=== PATIENT | male | born 1995 | race African-American/Black ===

== ENCOUNTER 2022-09-04 21:28 | Inpatient (IN) | payer MEDICAID, OTHER ==
[~2022-09-04] VITALS: Ht 2.5 cm; Wt 0.0 kg
[2022-09-04] MEDS ORDERED: ONDANSETRON ODT 4 MG TAB PO ONE (22:30)
[2022-09-04] MEDS ORDERED: chlordiazePOXIDE HCL 5 MG CAP PO ONE (22:30)
[2022-09-04] MEDS ORDERED: THIAMINE 100mg/ml INJ (200mg/2ml VIAL) IV ONE (22:30)
[2022-09-04 22:59] LABS: Basophils # (auto) 0.1 10 ^3/uL (0-0.2); Basophils % (auto) 1.3 % (0.0-2.0); Eosinophils # (auto) 0 10 ^3/uL (0-0.8); Eosinophils % (auto) 0.3 % (0.0-7.0); Hematocrit 50.1 % (41.0-53.0); Hemoglobin 17.4 g/dL (13.5-17.5); Lymphocytes # (auto) 1.8 10 ^3/uL (0.4-5.4); Lymphocytes % (auto) 18.8 % (10.0-50.0); Mean Corpuscular Hemoglobin 31.8 pg (28.0-32.0); Mean Corpuscular Hgb Conc. 34.7 g/dL (32.0-36.0); Mean Corpuscular Volume 91.7 fL (80.0-100.0); Monocytes % (auto) 10.4 % (0.0-12.0); Neutrophils # (auto) 6.7 10 ^3/uL (1.6-8.6); Neutrophils % (auto) 69.2 % (37.0-80.0); Nucleated Red Blood Cells % 0.2 %; Red Blood Cells 5.46 10^6/uL (4.5-5.90); Red Cell Distribution Width 13.8 % (11.8-14.3); White Blood Cell 9.7 10^3/uL (4.4-10.8)
[2022-09-04 23:15] LABS: Amphetamine Screen, Urine NEGATIVE (NEGATIVE); Barbiturate Scree,Urine NEGATIVE (NEGATIVE); Benzodiazephine Screen, Urine NEGATIVE (NEGATIVE); Cannabinoid Screen, Urine POSITIVE (NEGATIVE); Cocaine Screen, Urine NEGATIVE (NEGATIVE); Opiate Scree,Urine NEGATIVE (NEGATIVE); Phencyclidine Screen, Urine NEGATIVE (NEGATIVE)
[2022-09-04 23:18] LABS: Albumin 4.3 g/dL (3.4-5.0); BUN/Creatinine Ratio 8.9 (10.0-20.0); Calcium 10.1 mg/dL (8.5-10.1); Potassium 3.8 mmol/L (3.5-5.1)
[2022-09-04 23:20] LABS: Bilirubin, Total 0.9 mg/dL (0.2-1.0)
[2022-09-05] MEDS ORDERED: HYDROcodone-ACET 5/325MG TAB PO PRN (04:15)
[2022-09-05] MEDS ORDERED: LORazepam 2MG/ML-1ML VIAL IV PRN (04:15)
[2022-09-05] MEDS ORDERED: MORPHINE SULFATE INJ 2 MG/ml SYRG IV PRN ×2 (04:15)
[2022-09-05] MEDS ORDERED: ACETAMINOPHEN 325 MG TAB PO PRN (04:15)
[2022-09-05] MEDS ORDERED: NITROGLYCERIN 0.4 MG SL TAB SL PRN (04:15)
[2022-09-05] MEDS ORDERED: DOCUSATE SOD 100 MG CAP PO PRN (04:15)
[2022-09-05] MEDS ORDERED: ONDANSETRON HCL 4 MG/2 ML VIAL IV PRN (04:15)
[2022-09-05] MEDS: SODIUM CHLORIDE 0.9% 1,000 ML IV SCH ×2 (04:32→07:37)
[2022-09-05] MEDS ORDERED: FOLIC ACID 1 MG, MULTIPLE VITAMIN 10 ML, MAGNESIUM SULF SDV 50% 8 MEQ, THIAMINE INJ 100... INJ SCH ×5 (12:00)
[2022-09-05 12:18] LABS: Basophils # (auto) 0.1 10 ^3/uL (0-0.2); Basophils % (auto) 1.2 % (0.0-2.0); Eosinophils # (auto) 0.1 10 ^3/uL (0-0.8); Eosinophils % (auto) 1.8 % (0.0-7.0); Hematocrit 45.9 % (41.0-53.0); Hemoglobin 16.1 g/dL (13.5-17.5); Lymphocytes # (auto) 1.4 10 ^3/uL (0.4-5.4); Lymphocytes % (auto) 19.2 % (10.0-50.0); Mean Corpuscular Hgb Conc. 35.2 g/dL (32.0-36.0); Monocytes # (auto) 0.7 10 ^3/uL (0-1.3); Monocytes % (auto) 10.3 % (0.0-12.0); Neutrophils # (auto) 4.7 10 ^3/uL (1.6-8.6); Neutrophils % (auto) 67.5 % (37.0-80.0); Nucleated Red Blood Cells % 0.1 %; Red Blood Cells 5.04 10^6/uL (4.5-5.90); Red Cell Distribution Width 13.7 % (11.8-14.3)
[2022-09-05 12:42] LABS: Albumin 3.9 g/dL (3.4-5.0); Calcium 9.5 mg/dL (8.5-10.1); Potassium 3.4 mmol/L (3.5-5.1)
[2022-09-05 12:44] LABS: BUN/Creatinine Ratio 10.8 (10.0-20.0); Bilirubin, Total 1.6 mg/dL (0.2-1.0); Total Protein 7.4 g/dL (6.4-8.2)
[2022-09-05] MEDS ORDERED: DONNATAL 5ml ORAL Elix (BELLADONNA ALK-PHENOBARB) PO ONE (17:30)
[2022-09-05] MEDS ORDERED: LIDOCAINE VISCOUS 2% 15ML UD PO ONE (17:30)
[2022-09-05] MEDS ORDERED: MAALOX PLUS or MAALOX 30 ML PO ONE (17:30)
[2022-09-05 19:19] VITALS: BP 140/86
== END 2022-09-05 19:22 | disposition home or self-care (01) | DRG 775 ==
LOC: ER 21:28 → TELE 09-05 04:11
PROVIDERS: ADMIT Nurse Practitioner Family; ATTEND Nurse Practitioner Family
DX: F10.129 Alcohol abuse with intoxication, unspecified (principal); F32.A Depression, unspecified; T51.0X1A Toxic effect of ethanol, accidental (unintentional), initial encounter; F41.9 Anxiety disorder, unspecified; Y92.89 Other specified places as the place of occurrence of the external cause
CPT/HCPCS: 36415; 80053; 80307; 80320; 83880; 84484; 85025; 93005; 96361; 96365; 96366; 96375; G0378; Q0162

== ENCOUNTER 2024-11-29 11:40 | Inpatient (IN) | payer MEDICAID ==
[~2024-11-29] VITALS: Ht 188 cm; Wt 87.5 kg
--- NOTE | 2024-11-29 12:34 | ED.PDOC ---
History of Present Illness HPI Comments Patient is a 29-year-old male presents to the ED with a chief complaint of left calf pain. Reports pain started yesterday morning has been constant, [id number] in intensity about 8/10, has calf tenderness and reports pain on walking. Patient reports he had a similar pain in January 2023 when he was diagnosed with a DVT in the left lower extremity and was blood thinners for a couple of months but does not remember the name. Does not report any recent history of surgery, immobilization. Denies any history of blood clots in the family Chief Complaint: Lower Extremity Time Seen by MD: 12:11 Primary Care Provider: VERONIKA Reviewed Notes: Nurses Notes, Medications, Allergies Allergies: Coded Allergies: NO KNOWN ALLERGIES (Unverified , 08/17/14) Information Source: Patient Mode of Arrival: Ambulatory Severity: Mild, Moderate Timing: Days Past Medical History PAST MEDICAL HISTORY: Anxiety, Depression Past Medical History (Other): DVT Surgical History: Denies all surgeries Family History Family History: Reviewed,noncontributory to illness, No family hx of Cancer, No family hx of DM, No family hx of Heart ruma, No family hx of HTN, No family hx ofKidney ruma, No family hx of Liver ruma, No family hx of Lung ruma, No family hx of Stroke Social History Smoker: Non-Smoker Alcohol: Denies ETOH Use Drugs: Denies Drug Use Constitutional: denies: chills, diaphoresis, fatigue, fever, malaise, sweats, weakness, others EENTM: denies: blurred vision, double vision, ear bleeding, ear discharge, ear drainage, ear pain, ear ringing, eye pain, eye redness, hearing loss, mouth pain, mouth swelling, nasal discharge, nose bleeding, nose congestion, nose pain, photophobia, tearing, throat pain, throat swelling, voice changes, others Respiratory: denies: cough, hemoptysis, orthopnea, SOB at rest, shortness of breath, SOB with excertion, stridor, wheezing, others Cardiovascular: denies: chest pain, dizzy spells, diaphoresis, Dyspnea on exertion, edema, irregular heart beat, left arm pain, lightheadedness, palpitations, PND, syncope, others Gastrointestinal: denies: abdomen distended, abdominal pain, blood streaked bowels, constipated, diarrhea, dysphagia, difficulty swallowing, hematemesis, melena, nausea, poor appetite, poor fluid intake, rectal bleeding, rectal pain, vomiting, others Genitourinary: denies: burning, dysuria, flank pain, frequency, hematuria, incontinence, penile discharge, penile sore, pain, testicle pain, testicle swelling, urgency, others Neurological: denies: dizziness, fainting, headache, left sided numbness, left sided weakness, numbness, paresthesia, pre-existing deficit, right sided numbness, right sided weakness, seizure, speech problems, tingling, tremors, weakness, others Musculoskeletal: reports: others (Left calf pain and tenderness) Integumetry: denies: bruises, change in color, change in hair/nails, dryness, laceration, lesions, lumps, rash, wounds, others Allergic/Immunocompromised: denies: Difficulty Healing, Frequent Infections, Hives, Itching, others Hematologic/Lymphatic: denies: anemia, blood clots, easy bleeding, easy bruising, swollen glands, others Endocrine: denies: excessive hunger, excessive sweating, excessive thirst, excessive urination, flushing, intolerance to cold, intolerance to heat, unexplained weight gain, unexplained weight loss, others Psychiatric: denies: anxiety, bipolar disorder, depression, hopeless, panic disorder, schizophrenia, sleepless, suicidal, others Physical Exam General Appearance: No Apparent Distress, Normal HEENT: Normal ENT Inspection, Pharynx Normal, TMs Normal Neck: Full Range of Motion, Non-Tender, Normal, Normal Inspection Respiratory: Chest Non-Tender, Lungs Clear, No Accessory Muscle Use, No Respiratory Distress, Normal Breath Sounds Cardiovascular: No Edema, No JVD, No Murmur, No Gallop, Normal Peripheral Puls es, Regular Rate/Rhythm Breast Exam: Deferred Gastrointestinal: No Organomegaly, Non Tender, No Pulsatile Mass, Normal Bowel Sounds, Soft Genitalia: Deferred Pelvic: Deferred Rectal: Deferred Extremities: Calf tenderness (Left), Normal inspection, Normal range of motion, No pedal edema Neurologic: Alert, 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 Was a procedure done?: No Differential Dx Considerations may include: DVT, cough strain, muscle tear, superficial thrombophlebitis X-Ray, Labs, Meds, VS Vital Signs Date Time Temp Pulse Resp B/P (MAP) Pulse Ox O2 Delivery O2 Flow Rate FiO2 11/29/24 12:23 98.3 89 20 144/90 (108) 97 98.3 Lab Test 11/29/24 12:34 Range/Units White Blood Count 5.3 4.4-10.8 10^3/uL Red Blood Count 4.55 4.5-5.90 10^6/uL Hemoglobin 14.5 13.5-17.5 g/dL Hematocrit 43.0 41.0-53.0 % Mean Corpuscular Volume 94.5 80.0-100.0 fL Mean Corpuscular Hemoglobin 31.9 28.0-32.0 pg Mean Corpuscular Hemoglobin Concent 33.8 32.0-36.0 g/dL Red Cell Distribution Width 13.7 11.8-14.3 % Platelet Count 239 140-450 10^3/uL Mean Platelet Volume 7.6 6.9-10.8 fL Neutrophils (%) (Auto) 58.5 37.0-80.0 % Lymphocytes (%) (Auto) 21.6 10.0-50.0 % Monocytes (%) (Auto) 15.9 H 0.0-12.0 % Eosinophils (%) (Auto) 3.4 0.0-7.0 % Basophils (%) (Auto) 0.6 0.0-2.0 % Neutrophils # (Auto) 3.1 1.6-8.6 10 ^3/uL Lymphocytes # (Auto) 1.2 0.4-5.4 10 ^3/uL Monocytes # (Auto) 0.8 0-1.3 10 ^3/uL Eosinophils # (Auto) 0.2 0-0.8 10 ^3/uL Basophils # (Auto) 0 0-0.2 10 ^3/uL Nucleated Red Blood Cells 0.1 % D-Dimer, Quantitative 9.08 H 0.0-0.49 mg/L FEU Sodium Level 141 136-145 mmol/L Potassium Level 3.8 3.5-5.1 mmol/L Chloride Level 104 98-107 mmol/L Carbon Dioxide Level 28 20-31 mmol/L Anion Gap 9 5-15 Blood Urea Nitrogen 7 L 9-23 mg/dL Creatinine 1.13 0.700-1.30 mg/dL Glomerular Filtration Rate Calc 91 >90 mL/min BUN/Creatinine Ratio 6.2 L 10.0-20.0 Serum Glucose 100 74-106 mg/dL Calcium Level 9.9 8.7-10.4 mg/dL Patient is a 29-year-old male came to the ED with a chief complaint of left calf pain for the last 2 days. Extremity was warm, pulses palpable, no signs of systemic infection. Initial labs showed elevated D-dimer and left lower extremity venous Doppler showed left peroneal vein thrombus. Patient was started on therapeutic dose Lovenox and will be admitted for further inpatient workup. Patient was explained about the condition and he agrees to the plan. Time of 1ST Reevaluation: 13:12 Reevaluation 1ST: Unchanged Time of 2ND Reevaluation: 14:02 Reevaluation 2ND: Unchanged Patient Education/Counseling: Diagnosis, Treatment Family Education/Counseling: No Family Present SEPSIS Sepsis Screen Physician Orders Lt Lower Dvt (11/29/24 12:23) Enoxaparin Sodium (Lovenox) (11/29/24 14:30) Enoxaparin Sodium (Lovenox) (11/29/24 22:00) Regular Diet (11/29/24 Dinner) Vital Signs Date Time Temp Pulse Resp B/P (MAP) Pulse Ox O2 Delivery O2 Flow Rate FiO2 11/29/24 12:23 98.3 89 20 144/90 (108) 97 98.3 Laboratory Tests Test 11/29/24 12:34 White Blood Count 5.3 10^3/uL (4.4-10.8) Departure 1 Departure Time of Disposition: 14:24 Impression: Primary Impression: DVT of lower extremity (deep venous thrombosis) Disposition: ADMITTED INPATIENT Condition: Stable Critical Care Note Critical Care Time?: No Stability Stability form required: No Heart Score Heart Score: Heart Score Response (Comments) Value History N/A 0 EKG N/A 0 Age N/A 0 Risk Factors N/A 0 Troponin N/A 0 Total 0 CARIN BURT RESIDENT Nov 29, 2024 12:34
[2024-11-29 13:15] LABS: Chloride 104 mmol/L (98-107); Potassium 3.8 mmol/L (3.5-5.1); Sodium 141 mmol/L (136-145)
[2024-11-29 13:16] LABS: Anion Gap 9 (5-15); Calcium 9.9 mg/dL (8.7-10.4); Carbon Dioxide 28 mmol/L (20-31); Hematocrit 43.0 % (41.0-53.0); Hemoglobin 14.5 g/dL (13.5-17.5); Mean Corpuscular Hemoglobin 31.9 pg (28.0-32.0); Mean Corpuscular Volume 94.5 fL (80.0-100.0); Nucleated Red Blood Cells % 0.1 %
[2024-11-29 13:21] LABS: BUN/Creatinine Ratio 6.2 (10.0-20.0); Glucose 100 mg/dL (74-106)
[2024-11-29 13:22] LABS: Blood Urea Nitrogen 7 mg/dL (9-23)
--- NOTE | 2024-11-29 13:42 | DVH ---
US LT Lower DVT HISTORY: suspected dvt COMPARISON: None TECHNIQUE: Duplex doppler evaluation of the deep venous system of the lower extremity from the common femoral veins, superficial femoral vein, great saphenous vein, deep femoral vein, popliteal vein, an d calf veins, including color doppler and spectral/pulsed waveform analysis, was performed. FINDINGS: Left: - Common femoral vein: Compressible - Deep femoral vein: Compressible - Femoral vein: Compressible - Popliteal vein: Compressible - Posterior tibial vein: Waveforms present - Peroneal vein: Thrombus seen. - Other: Nothing IMPRESSION: Left peroneal vein thrombus.
[2024-11-29] MEDS ORDERED: ENOXAPARIN SOD 100 MG/1 ML SYRINGE SC ONE (14:30)
[2024-11-29] MEDS: ENOXAPARIN SOD 80 MG/0.8ML SYRINGE SC ONE (15:31)
[2024-11-29 16:11] VITALS: PULSE 84; RESP 18; O2SAT 96
[2024-11-29] MEDS ORDERED: ONDANSETRON HCL 4 MG/2 ML VIAL IV PRN (19:00)
[2024-11-29] MEDS ORDERED: HYDROcodone-ACET 5/325MG TAB PO PRN (19:00)
[2024-11-29] MEDS ORDERED: DOCUSATE SOD 100 MG CAP PO PRN (19:00)
--- NOTE | 2024-11-29 19:06 | DVHHP2 ---
Admitting Diagnosis: left leg pain History of Present Illness Patient is a 29-year-old male presents to the ED with a chief complaint of left calf pain. Reports pain started yesterday morning has been constant, m [id number] in intensity about 8/10, has calf tenderness and reports pain on walking. Patient reports he had a similar pain in January 2023 when he was diagnosed with a DVT in the left lower extremity and was blood thinners for a couple of months but does not remember the name. Does not report any recent history of surgery, immobilization. Denies any history of blood clots in the family PAST MEDICAL HISTORY: Anxiety, Depression Past Medical History (Other): DVT Surgical History: Denies all surgeries Family History Family History: Reviewed,noncontributory to illness, No family hx of Cancer, No family hx of DM, No family hx of Heart ruma, No family hx of HTN, No family hx ofKidney ruma, No family hx of Liver ruma, No family hx of Lung ruma, No family hx of Stroke Social History Smoker: Non-Smoker Alcohol: Denies ETOH Use Drugs: Denies Drug Use Allergies: Coded Allergies: NO KNOWN ALLERGIES (Unverified , 08/17/14) Current Medications Current Medications Medications (Trade) Dose Ordered Sig/Jeet Route PRN Reason Start Time Stop Time Status Last Admin Enoxaparin Sodium (Lovenox) 80 mg Q12HR SC 11/29/24 22:00 Vital Signs Vital Signs Date Time Temp Pulse Resp B/P (MAP) Pulse Ox O2 Delivery O2 Flow Rate FiO2 11/29/24 16:11 84 18 96 Room Air* 0 21 11/29/24 12:23 98.3 144/90 (108) 98.3 Physical Exam Generally-79 years old male, well nourished well developed. No apparent distress HEENT-atraumatic, normocephalic Heart-regular rate and rhythm Lungs clear to auscultate bilaterally Abdomen soft nontender nondistended Musculoskeletal-left leg mild tender at the calf Neuro-AO x3, no focal deficits SEPSIS Sepsis Screen Date sepsis recognized/suspect: Nov 29, 2024 Time Sepsis recognized/suspect: 1200 Recent Procedure: No On Antibiotic Therapy: No Respiratory Rate >20: No Heart Rate >90: No Temp<36 C (96.8 F) or >38.3 C: No SBP <90 or MAP <65 mmHG: No New Acute Mental Status Change: No Is the patient on CPAP, BIPAP,: No Physician Orders Lt Lower Dvt (11/29/24 12:23) Regular Diet (11/29/24 Dinner) Enoxaparin Sodium (Lovenox) (11/29/24 22:00) Vital Signs Date Time Temp Pulse Resp B/P (MAP) Pulse Ox O2 Delivery O2 Flow Rate FiO2 11/29/24 16:11 84 18 96 Room Air* 0 21 11/29/24 12:23 98.3 89 20 144/90 (108) 97 98.3 Laboratory Tests Test 11/29/24 12:34 White Blood Count 5.3 10^3/uL (4.4-10.8) Medications Medications Dose Ordered Sig/Jeet Route Start Time Stop Time Status Last Admin Dose Admin Enoxaparin Sodium 80 mg ONCE ONCE SC 11/29/24 14:30 11/29/24 14:31 DC 11/29/24 15:31 Results Labs Test 11/29/24 12:34 Range/Units White Blood Count 5.3 4.4-10.8 10^3/uL Red Blood Count 4.55 4.5-5.90 10^6/uL Hemoglobin 14.5 13.5-17.5 g/dL Hematocrit 43.0 41.0-53.0 % Mean Corpuscular Volume 94.5 80.0-100.0 fL Mean Corpuscular Hemoglobin 31.9 28.0-32.0 pg Mean Corpuscular Hemoglobin Concent 33.8 32.0-36.0 g/dL Red Cell Distribution Width 13.7 11.8-14.3 % Platelet Count 239 140-450 10^3/uL Mean Platelet Volume 7.6 6.9-10.8 fL Neutrophils (%) (Auto) 58.5 37.0-80.0 % Lymphocytes (%) (Auto) 21.6 10.0-50.0 % Monocytes (%) (Auto) 15.9 H 0.0-12.0 % Eosinophils (%) (Auto) 3.4 0.0-7.0 % Basophils (%) (Auto) 0.6 0.0-2.0 % Neutrophils # (Auto) 3.1 1.6-8.6 10 ^3/uL Lymphocytes # (Auto) 1.2 0.4-5.4 10 ^3/uL Monocytes # (Auto) 0.8 0-1.3 10 ^3/uL Eosinophils # (Auto) 0.2 0-0.8 10 ^3/uL Basophils # (Auto) 0 0-0.2 10 ^3/uL Nucleated Red Blood Cells 0.1 % D-Dimer, Quantitative 9.08 H 0.0-0.49 mg/L FEU Sodium Level 141 136-145 mmol/L Potassium Level 3.8 3.5-5.1 mmol/L Chloride Level 104 98-107 mmol/L Carbon Dioxide Level 28 20-31 mmol/L Anion Gap 9 5-15 Blood Urea Nitrogen 7 L 9-23 mg/dL Creatinine 1.13 0.700-1.30 mg/dL Glomerular Filtration Rate Calc 91 >90 mL/min BUN/Creatinine Ratio 6.2 L 10.0-20.0 Serum Glucose 100 74-106 mg/dL Calcium Level 9.9 8.7-10.4 mg/dL Primary Diagnosis Left lower extremity DVT Plan US shows left lower leg DVT s/p lovenox will continue FLD transition to PO eliquis 10mg bid x7 d then 5mg bid tomorrow if stable Full code ivf regular diet Plan discussed with: Patient Problems List: (1) DVT of lower extremity (deep venous thrombosis) Status: Acute Date of Service: Nov 29, 2024 Billing Provider: ABHISHEK HYMAN MD Common Visit Codes: [id number] INP/OBS CARE (HIGH) ABHISHEK HYMAN MD Nov 29, 2024 19:06
[2024-11-29] MEDS ORDERED: ENOXAPARIN SOD 80 MG/0.8ML SYRINGE SC SCH (22:00)
[2024-11-29] MEDS: SODIUM CHLOR 0.9% PF (SALINE LOCK) 10ML VIAL/SYR IV SCH (22:00)
[2024-11-30] VITALS (8 sets, daily range): BP systolic 130–140; BP diastolic 75–91; PULSE 78–90; RESP 15–20; TEMP 97.9–99.3; O2SAT 95–98
[2024-11-30] MEDS: ENOXAPARIN SOD 80 MG/0.8ML SYRINGE SC SCH (03:55)
[2024-11-30 06:47] LABS: Alanine Aminotransferase 41 U/L (7-40); Albumin 4.6 g/dL (3.2-4.8); Alkaline Phosphatase 50 U/L (46-116); Anion Gap 11 (5-15); BUN/Creatinine Ratio 6.6 (10.0-20.0); Bilirubin, Total 0.8 mg/dL (0.2-1.0); Blood Urea Nitrogen 7 mg/dL (9-23); Calcium 10.0 mg/dL (8.7-10.4); Carbon Dioxide 23 mmol/L (20-31); Chloride 106 mmol/L (98-107); Glucose 110 mg/dL (74-106); Potassium 3.8 mmol/L (3.5-5.1); Sodium 140 mmol/L (136-145); Total Protein 7.1 g/dL (5.7-8.2)
[2024-11-30 07:06] LABS: Hematocrit 42.0 % (41.0-53.0); Hemoglobin 14.4 g/dL (13.5-17.5); Mean Corpuscular Hemoglobin 32.2 pg (28.0-32.0); Mean Corpuscular Volume 94.0 fL (80.0-100.0); Nucleated Red Blood Cells % 0.1 %
[2024-11-30 09:58] LABS: Cholesterol 176 mg/dL (< 200)
[2024-11-30 10:00] LABS: HDL Cholesterol 62 mg/dL (40-59); Triglycerides 195 mg/dL (< 150)
[2024-11-30 10:35] LABS: Urine Protein, UAD Negative (Negative)
[2024-11-30 10:42] LABS: Amphetamine Screen, Urine Neg (NEGATIVE); Barbiturate Scree,Urine Neg (NEGATIVE); Benzodiazephine Screen, Urine Neg (NEGATIVE); Cannabinoid Screen, Urine Neg (NEGATIVE); Cocaine Screen, Urine Neg (NEGATIVE); Opiate Scree,Urine Neg (NEGATIVE); Phencyclidine Screen, Urine Neg (NEGATIVE)
[2024-11-30 12:16] LABS: COVID19 ANTIGEN SOFIA FIA NEGATIVE (NEGATIVE)
--- NOTE | 2024-11-30 18:55 | DVHPNRES ---
Progress Note Date Seen: Nov 30, 2024 Resident Creating Document: JOHAN LOPEZ RESIDENT Medical Necessity Reason Pt with a Central, PICC or Fol: No Subjective Review of Systems Patient is a 29-year-old male presents to the ED with a chief complaint of left calf pain. Reports pain started yesterday morning has been constant, [id number] in intensity about 8/10, has calf tenderness and reports pain on walking. Patient reports he had a similar pain in January 2023 when he was diagnosed with a DVT in the left lower extremity and was blood thinners for a couple of months but does not remember the name. Does not report any recent history of surgery, immobilization. Denies any history of blood clots in the family. Patient seen at bedside. Patient has a past medical history of anxiety and depression, and a previous DVT January 2023 on the left calf in the same location. At that time blood thinners were given but the patient only took the medication for 1 month, did not follow up with PCP. Today he states that his pain is 3/10 in intensity, mild tenderness to palpation, No redness or swelling present. Patient denies any long distance travel or immobilization, and major surgeries. Venous study shows left peroneal vein thrombus. Family history: He denies any blood clots in the family or history of cancers. Personal history: Patient states that he vapes every day, drinks 3 bottles of whiskey per week since 5 years, and denies any drug abuse. Constitutional: Denies weight loss, fever and chills. HEENT: Denies changes in vision and hearing. Respiratory: Denies shortness of breath and cough Cardiovascular: Denies chest discomfort or palpitations GI: Denies any abdominal pain : Denies dysuria and urinary frequency. Musculoskeletal: Denies myalgias and joint pain Skin: Denies rash and pruritus. Neurological: Denies dizziness, headache, vision or hearing problems Objective vital signs Vital Sign Date Time Temp Pulse Resp B/P (MAP) Pulse Ox O2 Delivery O2 Flow Rate FiO2 11/30/24 17:00 99.3 79 18 140/89 (106) 98 99.3 11/30/24 12:24 Room Air* 0 21 medications Current Medications Medications Dose Ordered Sig/Jeet Route Start Time Stop Time Status Last Admin Dose Admin Enoxaparin Sodium 80 mg Q12HR SC 11/29/24 22:00 Cancel Sodium Chloride 10 ml Q8HR IV 11/29/24 22:00 11/30/24 14:19 10 ML Docusate Sodium 100 mg BIDPRN PRN PO 11/29/24 19:00 Acetaminophen 650 mg Q6HP PRN PO 11/29/24 19:00 Acetaminophen/ Hydrocodone Bitart 1 tab Q4HP PRN PO 11/29/24 19:00 Ondansetron HCl 4 mg Q4HP PRN IV 11/29/24 19:00 Enoxaparin Sodium 80 mg Q12HR SC 11/29/24 22:00 11/30/24 09:35 80 MG Examination General: Patient alert and oriented in person, place and time. Patient following commands. HEENT: Normocephalic, atraumatic, moist mucous membranes Respiratory/pulmonary: Clear lungs bilaterally, vesicular murmurs present in almost all lung koch, no associated crackles or wheezes. Cardiovascular: Normal heart sounds S1 and S2 with no associated murmurs Abdomen: Abdomen nondistended, there is no pain to palpation in any of the abdominal quadrants, no palpable masses. Extremities: There is no peripheral edema present at the lower extremities. mild tenderness on palpation of left calf Peripheral Pulses: 3+ Radial (R). 3+ Radial (L). 3+ Dorsalis pedis (R). 3+ Dorsalis pedis(L) Skin: No rashes or pruritus, there is no sacral edema present at this time. Neurological: Intact cranial nerves with no focal neurologic deficits laboratory and microbiology Laboratory Tests 11/30/24 05:37 Test 11/30/24 05:37 Range/Units Serum Glucose 110 H 74-106 mg/dL Labs and/or images reviewed: Labs reviewed by me, Image(s) reviewed by me Problem List/Assessment/Plan Problem List/Assessment/Plan #Acute DVT of left lower leg -patient had history of DVT and was noncompliant with anticoagulant medication - venous study shows left peroneal vein thrombus - D-dimer elevated: 9.08 - CT angiogram done to rule out PE - given therapeutic Lovenox 80 mg, - Iv fluids - Ondansetron - pain management - docusate sodium Polysubstance use disorder -Counseled on alcohol, tobacco, and marijuana use cessation for 22 minutes including 12 minutes for tobacco use cessation Goals of care discussed with patient for 20 minutes: full code Case discussed with Dr. Chun Plan discussed with: Patient, Other (RN) Addendum Addendum Addendum I was physically present for the augila portions of the service provided to patient by THE RESIDENT. I have reviewed the documentation, discussed the case with resident and agree with the resident's documentation except as noted. Also the patient's clinical case was discussed with the patient's nurse. This medical document was created using an electronic medical record system with computerized dictation system. Although this document has been carefully reviewed, there might still be some phonetic and typographical errors. These areas are purely typographical due to imperfections of the software programs, and do not reflect any compromise in the patient's medical care. Late signature. Date of Service: Nov 30, 2024 Billing Provider: BILLY CHUN MD Common Visit Codes: [id number] INP/OBS CARE(HIGH) Secondary Visit Codes: [id number] CHNG SMOKING >10MIN (Counseled on alcohol, tobacco, and marijuana use cessation for 22 minutes including 12 minutes for tobacco use cessation), [id number] CARE PLAN 30 MINUTES (20 minutes) JOHAN LOPEZ RESIDENT Nov 30, 2024 18:54 BILLY CHUN MD Dec 01, 2024 05:10
[2024-11-30] MEDS: ACETAMINOPHEN 325 MG TAB PO PRN (19:24)
[2024-12-01] VITALS (8 sets, daily range): BP systolic 122–146; BP diastolic 85–93; PULSE 61–94; RESP 16–18; TEMP 97.6–98.6; O2SAT 96–99
[2024-12-01 06:01] LABS: Hematocrit 42.8 % (41.0-53.0); Hemoglobin 14.4 g/dL (13.5-17.5); Mean Corpuscular Hemoglobin 32.0 pg (28.0-32.0); Mean Corpuscular Volume 95.3 fL (80.0-100.0); Nucleated Red Blood Cells % 0.2 %
[2024-12-01 06:10] LABS: INR 1.05 (0.9-1.15); Prothrombin Time 11.1 sec (9.3-11.8)
[2024-12-01 06:12] LABS: Alanine Aminotransferase 38 U/L (7-40); Alkaline Phosphatase 48 U/L (46-116); Anion Gap 9 (5-15); BUN/Creatinine Ratio 8.4 (10.0-20.0); Bilirubin, Total 0.5 mg/dL (0.2-1.0); Calcium 9.4 mg/dL (8.7-10.4); Carbon Dioxide 24 mmol/L (20-31); Chloride 106 mmol/L (98-107); Glucose 95 mg/dL (74-106); Potassium 4.1 mmol/L (3.5-5.1); Sodium 139 mmol/L (136-145); Total Protein 7.0 g/dL (5.7-8.2)
[2024-12-01 06:15] LABS: Blood Urea Nitrogen 8 mg/dL (9-23)
[2024-12-01 06:28] LABS: Albumin 4.5 g/dL (3.2-4.8)
[2024-12-01] MEDS: IOHEXOL 350 MG/ML 100ML IJ ONE (08:20)
--- NOTE | 2024-12-01 09:02 | DVH ---
CT CT ANGIO CHEST CONTRAST INDICATION: Rule out pulmonary embolism EXAM DATE: 12/01/2024 08:21 AM COMPARISON: None RADIATION DOSE: CTDIvol: 17.76 mGy, DLP: 385.03 mGy*cm PROCEDURE: Helical CT angiographic images were obtained of the chest without intravenous contrast. S agittal and coronal reconstructions as well as MIPS are provided. Maximum intensity projections perfo rmed (MIPs) were performed for CTA. ADDITIONAL IMAGES / REFORMATS: None All CT scans at this medical facility are performed using dose modulation techniques as appropriate t o a performed exam including the following: Automated exposure control was utilized; adjustment of th e MA and/or KV according to patient size; and use of iterative reconstruction technique. FINDINGS: Bones: Normal. Visualized Abdomen: Normal. Chest Wall: Normal. Soft tissues: Normal. Mediastinum: Normal. Heart: Normal. Vessels: Bilateral pulmonary embolism in the lower right segmental and left subsegmental pulmonary ar teries. Lymph Nodes: Normal. Pleura: Normal. Airways: Normal. Lung: Normal. Other: None IMPRESSION: Bilateral pulmonary embolism in the lower right segmental and left subsegmental pulmonary arteries. Critical Result: Pulmonary Emboli Findings discussed with at 12/01/2024 08:58 AM and acknowledged receipt and understanding of the alexandru goel.
[2024-12-01 13:29] LABS: Hepatitis A Total Antibody Negative (Negative)
[2024-12-01 13:30] LABS: Hepatitis B Surface Antigen Negative (Negative); Hepatitis C Antibody Negative (Negative)
--- NOTE | 2024-12-01 15:11 | DVHPNRES ---
Progress Note Date Seen: Dec 01, 2024 Resident Creating Document: JOHAN LOPEZ RESIDENT Medical Necessity Reason Pt with a Central, PICC or Fol: No Subjective Review of Systems 29-year-old male with past medical history of anxiety and depression, and previous DVT presents to the ED with chief complaints of left calf pain which was sudden onset, 8 x 10 in intensity, constant and tender to palpation, Aggravated on walking, and relived by rest, reported no fever, chest pain, or sob. right now the pain is 3/10, mild tenderness to palpation, no redness, swelling. he was diagnosed with DVT and similar pain in January 2023, with similar symptoms on the left side, at that time medication was given and patient only took the medication for 1 month, and did not follow up with PCP. patient denies any long distance travel, or immobilization and any major surgeries. Patient has positive family history of DVT in mother and aunt. Patient seen at bedside. Comfortable, alert x3, ambulatory. He complains of mild tenderness in the left calf which increases when lifted, and walking, denies any shortness of breath, headache, dizziness, nausea, vomiting . CT angiography shows Bilateral pulmonary embolism in the lower right segmental and left subsegmental pulmonary arteries, Echo was ordered, and advised Transitioned to PO eliquis 10mg bid x7 d then 5mg bid. Objective vital signs Vital Sign Date Time Temp Pulse Resp B/P (MAP) Pulse Ox O2 Delivery O2 Flow Rate FiO2 12/01/24 09:00 97.6 79 18 122/93 (103) 97 97.6 11/30/24 20:00 Room Air* 0 21 Total Intake and Output 11/30/24 11/30/24 12/01/24 15:00 23:00 07:00 Intake Total 900 ml Balance 900 ml medications Current Medications Medications Dose Ordered Sig/Jeet Route Start Time Stop Time Status Last Admin Dose Admin Enoxaparin Sodium 80 mg Q12HR SC 11/29/24 22:00 Cancel Sodium Chloride 10 ml Q8HR IV 11/29/24 22:00 12/01/24 06:00 10 ML Docusate Sodium 100 mg BIDPRN PRN PO 11/29/24 19:00 Acetaminophen 650 mg Q6HP PRN PO 11/29/24 19:00 11/30/24 19:24 650 MG Acetaminophen/ Hydrocodone Bitart 1 tab Q4HP PRN PO 11/29/24 19:00 Ondansetron HCl 4 mg Q4HP PRN IV 11/29/24 19:00 Enoxaparin Sodium 80 mg Q12HR SC 11/29/24 22:00 12/01/24 10:10 80 MG Examination General: Patient alert and oriented in person, place and time. Patient following commands. HEENT: Normocephalic, atraumatic, moist mucous membranes Respiratory/pulmonary: Clear lungs bilaterally, vesicular murmurs present in almost all lung koch, no associated crackles or wheezes. Cardiovascular: Normal heart sounds S1 and S2 with no associated murmurs Abdomen: Abdomen nondistended, there is no pain to palpation in any of the abdominal quadrants, no palpable masses. Extremities: There is no peripheral edema present at the lower extremities. Mild Tenderness to palpation in the left mid calf Peripheral Pulses: 3+ Radial (R). 3+ Radial (L). 3+ Dorsalis pedis (R). 3+ Dorsalis pedis(L) Skin: No rashes or pruritus, there is no sacral edema present at this time. Neurological: Intact cranial nerves with no focal neurologic deficits laboratory and microbiology Laboratory Tests 12/01/24 05:19 Test 12/01/24 05:19 Range/Units Serum Glucose 95 74-106 mg/dL Labs and/or images reviewed: Labs reviewed by me, Image(s) reviewed by me Problem List/Assessment/Plan Problem List/Assessment/Plan #Acute DVT of left lower leg # Bilateral pulmonary emboli; ordered echocardiogram to rule out RV strain - patient had history of DVT and was noncompliant with anticoagulant medication - venous study shows left peroneal vein thrombus - D-dimer elevated: 9.08; could not be explained by lower extremity DVT in peroneal vein social angiogram was ordered - CT angiogram done And shows Bilateral pulmonary embolism in the lower right segmental and left subsegmental pulmonary arteries - given therapeutic Lovenox 80 mg, advised to transitioned to PO eliquis 10mg bid x7 d then 5mg bid. - Iv fluids - Ondansetron - pain management - docusate sodium - patient is Ambulatory #Depression/Anxiety without suicide ideation/plan - Resume Home meds #Polysubstance use disorder -Counseled on alcohol, tobacco, and marijuana use cessation Case discussed with Dr. Chun Plan discussed with: Patient, Other (RN) Addendum Addendum Addendum I was physically present for the aguila portions of the service provided to patient by THE RESIDENT. I have reviewed the documentation, discussed the case with resident and agree with the resident's documentation except as noted. Also the patient's clinical case was discussed with the patient's nurse. This medical document was created using an electronic medical record system with computerized dictation system. Although this document has been carefully reviewed, there might still be some phonetic and typographical errors. These areas are purely typographical due to imperfections of the software programs, and do not reflect any compromise in the patient's medical care. Late signature. Date of Service: Dec 01, 2024 Billing Provider: BILLY CHUN MD Common Visit Codes: [id number] INP/OBS CARE(HIGH) JOHAN LOPEZ RESIDENT Dec 01, 2024 15:11 BILLY CHUN MD Dec 02, 2024 15:02
[2024-12-01] MEDS ORDERED: APIX5TAB PO (15:32)
--- NOTE | 2024-12-01 17:37 | DVHSR ---
APPROVED REPORT EXAM: Two-dimensional and M-mode echocardiogram with Doppler and color Doppler. Blood Pressure: 122/93 mmHg RISK FACTORS Height: 6'2", Weight: 195 DIMENSIONS LVDd4.9 (3.8-5.7cm)LA (2D)3.7 (1.9-4.0cm)Aortic Root3.5 (2.0-3.7cm) LVDs3.4 (2.5-4.0cm)LA (MM) (1.9-4.0cm)Aortic Cusp Exc2.2 (1.5-2.0cm) EF (%) 59.0 (55-70%)Rt. Atrium4.3 (1.9-4.0cm)Asc. Aorta3.3 cm IVSd1.3 (0.7-1.1cm)RV (D)3.7 (1.8-2.4cm) PWd1.5 (0.7-1.1cm) Mitral Valve MitralMitral Stenosis E wave0.64m/sMV Mean GR.mmHg A wave0.49m/sMV Peak GR.mmHg E/A ratio1.32D MVAcm2 DECEL [id number] 1/2 Timems Aortic Valve Aortic ValveAortic Stenosis V10.96m/Madhuri Mean GR.4mmHg V21.30m/Madhuri Peak GR.7mmHg LVOT Diameter2.2 (1.8-2.4cm)Doppler AVA2.81cm2 Pulmonic Valve V20.76m/s Tricuspid Valve TR Velocity2.14m/s [id number] Conclusion Left ventricle: Left ventricle was normal-sized. Mild concentric left ventricular hypertrophy was s een. LVEF was 59%. There was no gross wall motion abnormality. Diastolic function was considered n ormal for age. Right ventricle was normal-sized. Both atria were normal-sized. Aortic valve was trileaflet. There was no aortic insufficiency/stenosis. There was mild mitral valv e prolapse. Mitral valve was mildly thickened. There was trace mitral regurgitation. There was mil d tricuspid regurgitation. Pulmonary valve revealed mild insufficiency. Right ventricular systolic pressure was normal at 21 mm Hg. There was no pericardial effusion.
[2024-12-02 01:11] VITALS: BP 120/85; PULSE 96; RESP 18; TEMP 97.7; O2SAT 97
[2024-12-02 05:19] VITALS: BP 123/83; PULSE 66; RESP 18; TEMP 97.9; O2SAT 98
[2024-12-02 06:40] LABS: Albumin 4.5 g/dL (3.2-4.8); Alkaline Phosphatase 51 U/L (46-116); Anion Gap 8 (5-15); BUN/Creatinine Ratio 10.8 (10.0-20.0); Bilirubin, Total 0.4 mg/dL (0.2-1.0); Blood Urea Nitrogen 11 mg/dL (9-23); Calcium 10.1 mg/dL (8.7-10.4); Carbon Dioxide 26 mmol/L (20-31); Chloride 104 mmol/L (98-107); Glucose 96 mg/dL (74-106); Potassium 4.1 mmol/L (3.5-5.1); Sodium 138 mmol/L (136-145); Total Protein 7.0 g/dL (5.7-8.2)
[2024-12-02 06:42] LABS: Alanine Aminotransferase 93 U/L (7-40)
[2024-12-02 06:45] LABS: Hematocrit 44.2 % (41.0-53.0); Hemoglobin 15.3 g/dL (13.5-17.5); Mean Corpuscular Hemoglobin 32.5 pg (28.0-32.0); Mean Corpuscular Volume 93.9 fL (80.0-100.0); Nucleated Red Blood Cells % 0.1 %
[2024-12-02 08:10] VITALS: PULSE 69; PULSE 92; RESP 16; O2SAT 98
[2024-12-02 09:03] VITALS: BP 126/77; PULSE 92; RESP 16; TEMP 98.4; O2SAT 98
[2024-12-02 11:08] VITALS: BP 126/77; PULSE 92; RESP 16; TEMP 98.4; O2SAT 98
--- NOTE | 2024-12-02 13:16 | DVHDSRES ---
Discharge Summary Date of Admission Resident Creating Document: JOHAN LOPEZ RESIDENT Nov 29, 2024 at 18:56 Date of Discharge: Dec 02, 2024 Admitting Diagnosis Acute DVT of left lower leg Labs/Diagnostic Data: Laboratory Results Test 12/02/24 05:48 12/01/24 05:19 11/30/24 10:40 11/30/24 10:12 White Blood Count 6.7 10^3/uL (4.4-10.8) Red Blood Count 4.70 10^6/uL (4.5-5.90) Hemoglobin 15.3 g/dL (13.5-17.5) Hematocrit 44.2 % (41.0-53.0) Mean Corpuscular Volume 93.9 fL (80.0-100.0) Mean Corpuscular Hemoglobin 32.5 pg (28.0-32.0) Mean Corpuscular Hemoglobin Concent 34.6 g/dL (32.0-36.0) Red Cell Distribution Width 14.0 % (11.8-14.3) Platelet Count 251 10^3/uL (140-450) Mean Platelet Volume 8.1 fL (6.9-10.8) Neutrophils (%) (Auto) 53.9 % (37.0-80.0) Lymphocytes (%) (Auto) 31.6 % (10.0-50.0) Monocytes (%) (Auto) 9.8 % (0.0-12.0) Eosinophils (%) (Auto) 3.8 % (0.0-7.0) Basophils (%) (Auto) 0.9 % (0.0-2.0) Neutrophils # (Auto) 3.6 10 ^3/uL (1.6-8.6) Lymphocytes # (Auto) 2.1 10 ^3/uL (0.4-5.4) Monocytes # (Auto) 0.7 10 ^3/uL (0-1.3) Eosinophils # (Auto) 0.3 10 ^3/uL (0-0.8) Basophils # (Auto) 0.1 10 ^3/uL (0-0.2) Nucleated Red Blood Cells 0.1 % Sodium Level 138 mmol/L (136-145) Potassium Level 4.1 mmol/L (3.5-5.1) Chloride Level 104 mmol/L (98-107) Carbon Dioxide Level 26 mmol/L (20-31) Anion Gap 8 (5-15) Blood Urea Nitrogen 11 mg/dL (9-23) Creatinine 1.02 mg/dL (0.700-1.30) Glomerular Filtration Rate Calc 103 mL/min (>90) BUN/Creatinine Ratio 10.8 (10.0-20.0) Serum Glucose 96 mg/dL (74-106) Calcium Level 10.1 mg/dL (8.7-10.4) Total Bilirubin 0.4 mg/dL (0.2-1.0) Aspartate Amino Transferase (AST) 101 U/L (13-40) Alanine Aminotransferase (ALT) 93 U/L (7-40) Alkaline Phosphatase 51 U/L (46-116) Troponin I High Sensitivity 3 ng/L (</=54) B-Type Natriuretic Peptide 5.00 pg/mL (0-100) Total Protein 7.0 g/dL (5.7-8.2) Albumin 4.5 g/dL (3.2-4.8) Prothrombin Time 11.1 sec (9.3-11.8) Prothrombin Time INR 1.05 (0.9-1.15) Hepatitis A Antibody Total Negative (Negative) Hepatitis B Surface Antigen Negative (Negative) Hepatitis B Surface Antibody Negative (Negative) Hepatitis B Core Total Antibody Negative (Negative) Hepatitis C Antibody Negative (Negative) HIV (1&2) Antibody Negative (Negative) Influenza Type A Antigen Negative (Negative) Influenza Type B Antigen Negative (Negative) SARS-CoV-2 Antigen (Rapid) Negative (NEGATIVE) Urine Color Yellow (Yellow) Urine Clarity Clear (Clear) Urine pH 6.0 (5.0-9.0) Urine Specific [place] 1.020 (1.001-1.035) Urine Protein Negative (Negative) Urine Ketones Negative (Negative) Urine Blood Negative /uL (Negative) Urine Nitrite Negative (Negative) Urine Bilirubin Negative (Negative) Urine Urobilinogen 2 mg/dL (Negative) Urine Leukocyte Esterase Negative /uL (Negative) Urine RBC <1 /hpf (0 - 3) Urine Microscopic WBC < 1 /HPF (0-3) Urine Squamous Epithelial Cells Few /hpf (<5) Urine Bacteria None seen /hpf (None Seen) Urine Glucose Normal mg/dL (Normal) Urine Opiates Screen Neg (NEGATIVE) Urine Fentanyl Screen Neg (NEGATIVE) Urine Barbiturates Screen Neg (NEGATIVE) Urine Phencyclidine Screen Neg (NEGATIVE) Urine Amphetamines Screen Neg (NEGATIVE) Urine Benzodiazepines Screen Neg (NEGATIVE) Urine Cocaine Screen Neg (NEGATIVE) Urine Cannabinoids Screen Neg (NEGATIVE) Test 11/30/24 05:37 11/29/24 12:34 Triglycerides Level 195 mg/dL (< 150) Cholesterol Level 176 mg/dL (< 200) LDL Cholesterol 94 mg/dL (< 100) HDL Cholesterol 62 mg/dL (40-59) Plasma/Serum Blood Alcohol < 3.0 mg/dL (<10) D-Dimer, Quantitative 9.08 mg/L FEU (0.0-0.49) Other Laboratory Tests 12/02/24 05:48 Brief Hx & Hospital Course: 29-year-old male with past medical history of anxiety and depression, and previous DVT presents to the ED with chief complaints of left calf pain which was sudden onset, 8 x 10 in intensity, constant and tender to palpation, Aggravated on walking, and relived by rest, reported no fever, chest pain, or sob. right now the pain is 3/10, mild tenderness to palpation, no redness, swelling. he was diagnosed with DVT and similar pain in January 2023, with similar symptoms on the left side, at that time medication was given and patient only took the medication for 1 month, and did not follow up with PCP. patient denies any long distance travel, or immobilization and any major surgeries. Patient has positive family history of DVT in mother and aunt. Brief hospital course: For acute DVT of left lower leg patient was given therapeutic Lovenox 80 mg. Venous study showed left peroneal vein thrombus. D-dimer was elevated at 9.08. CT angiogram was done and showed bilateral pulmonary embolism in the lower right segmental and left subsegmental pulmonary arteries. Patient was given IV fluids, ondansetron and pain management as needed. Patient is ambulatory. Patient is advised to take p.o. Eliquis 10 mg b.i.d. into 7d then 5mg bid. For polysubstance use disorder patient was counseled on importance of to stop vaping and tobacco use. Counseled on cessation of alcohol and marijuana use. For depression/ anxiety patient was counseled to resume home meds. Patient was comfortable and ambulatory had no shortness of breath chest pain. Patient was stable for discharge and communicated understanding that he had to take the medication for the rest of his life. General: Patient alert and oriented in person, place and time. Patient following commands. HEENT: Normocephalic, atraumatic, moist mucous membranes Respiratory/pulmonary: Clear lungs bilaterally, vesicular murmurs present in almost all lung koch, no associated crackles or wheezes. Cardiovascular: Normal heart sounds S1 and S2 with no associated murmurs Abdomen: Abdomen nondistended, there is no pain to palpation in any of the abdominal quadrants, no palpable masses. Extremities: There is no peripheral edema present at the lower extremities. Peripheral Pulses: 3+ Radial (R). 3+ Radial (L). 3+ Dorsalis pedis (R). 3+ Dorsalis pedis(L) Skin: No rashes or pruritus, there is no sacral edema present at this time. Neurological: Intact cranial nerves with no focal neurologic deficits Operations or Procedures US LT Lower DVT HISTORY: suspected dvt COMPARISON: None TECHNIQUE: Duplex doppler evaluation of the deep venous system of the lower extremity from the common femoral veins, superficial femoral vein, great saphenous vein, deep femoral vein, popliteal vein, and calf veins, including color doppler and spectral/pulsed waveform analysis, was performed. FINDINGS: Left: - Common femoral vein: Compressible - Deep femoral vein: Compressible - Femoral vein: Compressible - Popliteal vein: Compressible - Posterior tibial vein: Waveforms present - Peroneal vein: Thrombus seen. - Other: Nothing IMPRESSION: Left peroneal vein thrombus. CT ANGIO CHEST CONTRAST INDICATION: Rule out pulmonary embolism EXAM DATE: 12/01/2024 08:21 AM COMPARISON: None RADIATION DOSE: CTDIvol: 17.76 mGy, DLP: 385.03 mGy*cm PROCEDURE: Helical CT angiographic images were obtained of the chest without intravenous contrast. Sagittal and coronal reconstructions as well as MIPS are provided. Maximum intensity projections performed (MIPs) were performed for CTA. ADDITIONAL IMAGES / REFORMATS: None All CT scans at this medical facility are performed using dose modulation techniques as appropriate to a performed exam including the following: Automated exposure control was utilized; adjustment of the MA and/or KV according to patient size; and use of iterative reconstruction technique. FINDINGS: Bones: Normal. Visualized Abdomen: Normal. Chest Wall: Normal. Soft tissues: Normal. Mediastinum: Normal. Heart: Normal. Vessels: Bilateral pulmonary embolism in the lower right segmental and left subsegmental pulmonary arteries. Lymph Nodes: Normal. Pleura: Normal. Airways: Normal. Lung: Normal. Other: None IMPRESSION: Bilateral pulmonary embolism in the lower right segmental and left subsegmental pulmonary arteries. Critical Result: Pulmonary Emboli Findings discussed with at 12/01/2024 08:58 AM and acknowledged receipt and understanding of the findings. Condition at Discharge: Stable Final Diagnosis/Problems List #Acute DVT of left lower leg # Bilateral pulmonary emboli; rule out RV strain #Depression/Anxiety without suicide ideation/plan #Polysubstance use disorder Discharge Disposition: Home Discharge Instruct/Medications Diet: Regular Diet comment: Diet: Regular. Activity: No Restrictions, As Tolerated Activity comment: Activity: No restrictions/as tolerated. Follow Up/Referral: Follow up with PCP in 1 week Medications: As per EMR Scheduled Apixaban Base (Eliquis), 5 MG PO BID Apixaban Base (Eliquis), 10 MG PO BID Discharge Statement: "Patient was advised to return to the ER or call 911 if any headaches, dizziness, shortness of breath, chest pain, abdominal pain, bleeding, fevers, or worsening of medical condition. Patient was counseled about treatment plan, medications, possible side effects, patientverbalized understanding. All questions were answered to the best of my ability. This discharge took greater then 30 minutes in planning, reviewing documentation, counseling the patient, and discussing with other team members." ASSESSMENT ASSESSMENT Assessment Acute DVT in left lower leg Date of Service: Dec 02, 2024 Billing Provider: NINA ZENG MD Common Visit Codes: 58169-FKI/OBS DISCH DAY >30min JOHAN LOPEZ RESIDENT Dec 02, 2024 13:16 NINA ZENG MD Dec 02, 2024 23:19
== END 2024-12-02 13:15 | disposition home or self-care (01) | DRG 197 ==
LOC: ER 11:40 → OVERFLOW 18:56 → TELE-WESTW 11-30 18:45
PROVIDERS: ADMIT Internal Medicine; ATTEND Internal Medicine
DX: I82.452 Acute embolism and thrombosis of left peroneal vein (principal); I26.93 Single subsegmental thrombotic pulmonary embolism without acute cor pulmonale; F32.A Depression, unspecified; F41.9 Anxiety disorder, unspecified; F19.90 Other psychoactive substance use, unspecified, uncomplicated; Z91.199 Patient's noncompliance with other medical treatment and regimen due to unspecified reason; Z79.899 Other long term (current) drug therapy
CPT/HCPCS: 36415; 71275; 80048; 80053; 80061; 80307; 80320; 81001; 83880; 84484; 85025; 85379; 85610; 86703; 86704; 86706; 86708; 86803; 87340; 87426; 87804; 93306; 93971; 96372; G0378